=== PATIENT | male | born 1980 | race Caucasian/White ===

== ENCOUNTER 2020-04-16 11:52 | Emergency (ER) | payer OTHER ==
[~2020-04-16] VITALS: Ht 185.4 cm; Wt 86.2 kg
[2020-04-16] MEDS ORDERED: KETOROLAC TROMETH 60MG/2ML VIAL IM ONE (14:30)
[2020-04-16 14:46] VITALS: BP 156/92
== END 2020-04-16 14:49 | disposition home or self-care (01) ==
LOC: ER 11:52
DX: M25.462 Effusion, left knee (principal); F17.210 Nicotine dependence, cigarettes, uncomplicated
CPT/HCPCS: 29505; 73562; 96372; 99283; J1885